=== PATIENT | male | born 1975 | race Caucasian/White ===

== ENCOUNTER 2022-12-22 10:23 | Outpatient (CLI) | payer BC, SELFPAY | END 2022-12-22 10:24 | disposition home or self-care (01) | LOC: OP CLINIC 10:25 | PROVIDERS: PCP Emergency Medicine; Visit Provider Surgery | DX: D50.9 Iron deficiency anemia, unspecified (principal); K92.2 Gastrointestinal hemorrhage, unspecified; Z98.84 Bariatric surgery status | CPT/HCPCS: 43239; 45380; 88305; 99153; J1200; J2250; J3010 ==

== ENCOUNTER 2023-02-17 08:14 | Outpatient (CLI) | payer BC, SELFPAY | END 2023-02-17 08:15 | disposition home or self-care (01) | PROVIDERS: PCP Emergency Medicine; Visit Provider Emergency Medicine | DX: D50.9 Iron deficiency anemia, unspecified (principal); I10 Essential (primary) hypertension; Z13.6 Encounter for screening for cardiovascular disorders | CPT/HCPCS: 80061; 82728 ==

== ENCOUNTER 2023-05-08 09:30 | Outpatient (REF) | payer BC, SELFPAY | END 2023-05-08 09:31 | disposition home or self-care (01) | LOC: NFLDREF 09:30 | PROVIDERS: PCP Emergency Medicine; Referring Provider Emergency Medicine; Visit Provider Emergency Medicine | DX: D50.9 Iron deficiency anemia, unspecified (principal) | CPT/HCPCS: 82728 ==

== ENCOUNTER 2023-05-19 15:40 | Outpatient (CLI) | payer BC, SELFPAY | END 2023-05-19 15:41 | disposition home or self-care (01) | LOC: NFLDREF 05-23 21:40 | PROVIDERS: PCP Emergency Medicine; Visit Provider Emergency Medicine | DX: D50.9 Iron deficiency anemia, unspecified (principal) | CPT/HCPCS: 83516; 83540; 83550; 86364 ==

== ENCOUNTER 2023-05-24 10:44 | Outpatient (CLI) | payer BC, SELFPAY ==
--- NOTE | 2023-05-25 10:46 | ONC.NURNOTE ---
Received referral from PCP for iron deficiency anemia, discussed all labs with Dr. Fernandez today. She notes that patient has anemia of chronic disease based on lab values. No need to see hematology, no interventions or work up would be done at this time. If patient becomes anemic in the future, suggestion to repeat iron studies was made. Discussed with Zeeshan with Dr. Infante.
== END 2023-05-24 10:45 | disposition home or self-care (01) ==
PROVIDERS: PCP Emergency Medicine; Visit Provider Emergency Medicine
DX: I10 Essential (primary) hypertension (principal); D64.9 Anemia, unspecified; E53.8 Deficiency of other specified B group vitamins
CPT/HCPCS: 80076; 83010; 83615; 85045